=== PATIENT | male | born 1950 | race Caucasian/White ===

== ENCOUNTER → 2017-04-23 | Outpatient (CLI) | payer BC ==
--- NOTE | 2017-04-23 15:13 | DIAGNOSTIC IMAGING REPORT ---
CERVICAL WITHOUT CONTRAST HISTORY: 66 years-old Male R29.898 Right hand weakness for approximately 2 weeks. COMPARISON: None available TECHNIQUE: Multiplanar multisequence MRI of the cervical spine was obtained without contrast. FINDINGS: There is 38 degrees convex right curvature of the cervical spine measured from C3-C6. The large [id number] localizer images demonstrate no gross abnormality of the head, neck or chest. Signal within the cord is within normal limits. No acute fracture or significant focal bone marrow edema is identified. The imaged posterior fossa structures are within normal limits. There is mild polypoid mucosal thickening of the right sphenoid sinus measuring up to 1.7 cm. C2-C3: Mild intervertebral disc space narrowing and uncovertebral spurring is noted with mild facet arthrosis. There is effacement of the ventral thecal sac without significant central canal narrowing. There is however mild to moderate left foraminal narrowing. Right foramen is patent. C3-C4: Moderate intervertebral disc space narrowing with broad-based posterior disc osteophyte complex favoring the left lateral recess and left foramen causes mild central canal and moderate to severe left foraminal stenosis. The right foramen is patent. C4-C5: Mild to moderate intervertebral disc space narrowing with broad-based posterior disc osteophyte complex, severe left and moderate right facet arthropathy causes mild to moderate foraminal stenosis bilaterally. There is also mild central canal stenosis. C5-C6: Moderate intervertebral disc space narrowing with broad-based posterior disc osteophyte complex and mild facet arthrosis is present causing effacement of the ventral thecal sac without central canal narrowing. There is resultant moderate to severe left and [id number] right foraminal narrowing. C6-C7: Moderate intervertebral disc space narrowing with broad-based posterior disc osteophyte complex causes effacement of the ventral thecal sac. Additionally there is mild facet arthropathy with resultant moderate bi-foraminal narrowing. C7-T1: Mild intervertebral disc space narrowing with broad-based posterior disc osteophyte complex and and mild facet arthrosis without significant central canal or foraminal narrowing. There is a small posterior disc bulge at T1-T2 without significant central canal or foraminal narrowing. IMPRESSION: 1. Discogenic degenerative changes of the mid cervical spine are noted as detailed level by level above causing varying degrees of central canal and foraminal narrowing. No high-grade central canal stenosis. 2. 38 degrees convex right curvature of the cervical spine measured from C3-C6. The above report was generated using voice recognition software. It may contain grammatical, syntax or spelling errors. Electronically signed by: David Agee M.D. 04/23/2017 3:11 PM Dictated Date/Time: 04/23/2017 2:58 PM
== END | disposition home or self-care (01) ==
LOC: C.MRI 13:39
PROVIDERS: ATTEND Psychiatry & Neurology Neurology
DX: R29.898 Other symptoms and signs involving the musculoskeletal system (principal); M50.31 Other cervical disc degeneration, high cervical region; M50.321 Other cervical disc degeneration at C4-C5 level; M50.322 Other cervical disc degeneration at C5-C6 level; M50.323 Other cervical disc degeneration at C6-C7 level; M48.02 Spinal stenosis, cervical region